=== PATIENT | male | born 1955 | race Caucasian/White ===

== ENCOUNTER → 2016-08-17 | Outpatient (CLI) | payer BC | END | disposition disaster alternative care site (69) | LOC: GRAD 08-13 09:00 | DX: M19.071 Primary osteoarthritis, right ankle and foot (principal); M77.51 Other enthesopathy of right foot and ankle; M25.571 Pain in right ankle and joints of right foot; M85.69 Other cyst of bone, multiple sites; R60.0 Localized edema ==